=== PATIENT | female | born 1970 | race Caucasian/White ===

== ENCOUNTER 2018-02-15 12:27 | Emergency (ER) | payer MEDICAID ==
[2018-02-15] MEDS: predniSONE 20 MG TAB PO (13:17)
[2018-02-15] MEDS: ALBUTEROL 0.083% (NEB) 2.5 MG/3 ML AMP HHN (13:58)
[2018-02-15] MEDS: ACETAMINOPHEN 325 MG TAB PO (14:29)
== END 2018-02-15 14:53 | disposition home or self-care (01) ==
LOC: FTE 12:27
DX: J45.901 Unspecified asthma with (acute) exacerbation (principal); I10 Essential (primary) hypertension; Z87.891 Personal history of nicotine dependence
CPT/HCPCS: 94664; 99284-25

== ENCOUNTER 2018-02-21 13:54 | Emergency (ER) | payer MEDICAID ==
[2018-02-21] MEDS: ACETAMINOPHEN 325 MG TAB PO (14:50)
[2018-02-21] MEDS: METHYLPREDNISOLONE 125 MG INJ IM (14:51)
[2018-02-21] MEDS: LEVALBUTEROL (NEB) 1.25 MG/0.5 ML AMP INH (15:16)
[2018-02-21] MEDS: IPRATROPIUM (NEB) 0.5 MG/2.5 ML AMP INH (15:16)
== END 2018-02-21 16:37 | disposition home or self-care (01) ==
LOC: FTE 13:54
DX: J45.901 Unspecified asthma with (acute) exacerbation (principal); I10 Essential (primary) hypertension; Z87.891 Personal history of nicotine dependence
CPT/HCPCS: 71045; 81025; 87400; 94644; 96372; 99284-25

== ENCOUNTER 2018-11-04 13:39 | Emergency (ER) | payer OTHER, MEDICAID ==
[2018-11-04] MEDS: predniSONE 20 MG TAB PO (14:14)
[2018-11-04] MEDS: ALBUTEROL 0.083% (NEB) 2.5 MG/3 ML AMP NEB (14:15)
== END 2018-11-04 15:00 | disposition home or self-care (01) ==
LOC: FTE 13:39
DX: J45.901 Unspecified asthma with (acute) exacerbation (principal); I10 Essential (primary) hypertension; Z87.891 Personal history of nicotine dependence
CPT/HCPCS: 71045; 93005; 94664; 99284-25